=== PATIENT | male | born 1955 | race Caucasian/White ===

== ENCOUNTER 2016-02-11 10:19 | Inpatient (IN) | payer OTHER ==
[~2016-02-11] VITALS: Ht 188 cm; Wt 115.4 kg
[~2016-02-11 10:19] MED LIST: AMLODIPINE BESY10 MG PO; ANUCORT-HC25 MG PR; BENADRYL ALLERG25 MG PO; CELEBREX200 MG PO; DIAZEPAM10 MG PO; FLUVOXAMINE MA100 MG PO; FOCALIN10 MG PO; HYDROCHLOROTHIA25 MG PO; INDERAL10 MG PO; LAMOTRIGINE100 MG PO; LISINOPRIL20 MG PO; METAMUCIL PLUS1 EACH PO; MIRTAZAPINE15 MG PO; OMEPRAZOLE20 MG PO; ONE-A-DAY ESSE1 EAC1 PO; PAXIL20 MG PO; WELLBUTRIN XL150 MG PO
[2016-02-11] MEDS ORDERED: LEVOFLOXACIN750 MG PO (10:49)
[2016-02-11] MEDS ORDERED: AZITHROMYCIN250 MG PO (10:49)
[2016-02-11] MEDS ORDERED: PREDNISONE10 MG PO (10:49)
[2016-02-11] MEDS ORDERED: REMERON45 MG PO (10:52)
[2016-02-11] MEDS ORDERED: BRINTELLIX20 MG PO (10:53)
[2016-02-11] MEDS ORDERED: DEXMETHYLPHENID10 MG PO (10:54)
[2016-02-11 11:13] LABS: HEMATOCRIT 43.3 % (38.0-50.0); MCH 33.1 PG (29.0-34.0); MCHC 35.8 G/DL (30.0-36.0); MCV 92.5 FL (86-99); MEAN PLAT.VOLUME 10.3 uM^3 (9.0-12.4); PLATELET COUNT 233 K/uL (156-360); RBC DIS.WIDTH-SD 45.3 % (39-53); RED BLOOD COUNT 4.68 M/uL (4.00-5.50); WHITE BLOOD COUNT 11.5 K/uL (4.1-10.2)
[2016-02-11 11:16] LABS: BASE EXCESS 3.3 mEq/L (-3 to +3); BICARBONATE 25.1 mEq/L (22-26); CARBOXY HGB 1.8 % (0-5); METHEMOGLOBIN 1.2 % (0-1.5); PCO2 30 mm Hg (35-45); PO2 69 mm Hg (80-100); pH 7.53 (7.35-7.45)
[2016-02-11 11:22] LABS: CHLORIDE 108 mEq/L (99-109); POTASSIUM 4.6 mEq/L (3.7-5.4); SODIUM 140 mEq/L (136-147)
[2016-02-11 11:24] LABS: GLUCOSE 129 mg/dL (70-99)
[2016-02-11 11:25] LABS: ANION GAP 11 MEQ/L (2-14)
[2016-02-11 11:26] LABS: TOTAL BILIRUBIN 0.6 mg/dL (0.0-1.0)
[2016-02-11 11:27] LABS: ALKALINE PHOSPHATASE 86 IU/L (3-129)
[2016-02-11 11:28] LABS: COMMENTS - BLOOD GASES A+C+; DEVICE NC; O2 FLOW 2 L/MIN; SITE RR
[2016-02-11 11:28] LABS: GFR ESTIMATE (CALCULATED) > 59 mL/min/
[2016-02-11 11:29] LABS: UREA NITROGEN (BUN) 27 mg/dL (9-23)
[2016-02-11 11:34] LABS: TROP-I INTERPRETATION NEGATIVE; TROPONIN-I 0.11 ng/mL (0.0-0.30)
[2016-02-11 11:36] LABS: D-DIMER ELISA 2.04 mg/L FEU (< 0.57)
[2016-02-11 12:23] LABS: EOSINOPHIL (%) 0 % (0-5); IMMATURE GRANULOCYTE (%) 3.2 % (0.0-0.7); IMMATURE GRANULOCYTE COUNT 3.7 K/uL; LYMPHOCYTE COUNT 1.3 K/uL (1.0-2.8); MONOCYTE (%) 9.4 % (3-12); MONOCYTE COUNT 1.1 K/uL (0-0.8); NEUTROPHIL COUNT 8.7 K/uL (1.8-6.4)
[2016-02-11 12:24] LABS: HEMATOLOGY COMMENT 1 SMEAR COMPATIBLE; PLAT.SUFFICIENCY ADEQUATE; USER ID SDF
[2016-02-11 13:10] LABS: INTER. NORMALIZED RATIO 1.1; PROTHROMBIN TIME 10.9 (9.2-11.2); PTT 26.6 (25-32)
[2016-02-11] MEDS ORDERED: BRINTELLIX10 MG PO (13:46)
[2016-02-11 14:30] VITALS: BP 167/92; BP 167/93
[2016-02-11 19:15] VITALS: BP 127/79
[2016-02-12 03:59] VITALS: BP 132/84
[2016-02-12 06:05] LABS: HEMATOCRIT 43.5 % (38.0-50.0); MCH 33.6 PG (29.0-34.0); MCHC 34.9 G/DL (30.0-36.0); MEAN PLAT.VOLUME 10.8 uM^3 (9.0-12.4); PLATELET COUNT 197 K/uL (156-360); RBC DIS.WIDTH-CV 14.3 % (11.8-14.6); RBC DIS.WIDTH-SD 49.2 % (39-53); RED BLOOD COUNT 4.53 M/uL (4.00-5.50); WHITE BLOOD COUNT 11.4 K/uL (4.1-10.2)
[2016-02-12 06:47] LABS: ALKALINE PHOSPHATASE 65 IU/L (3-129); ANION GAP 11 MEQ/L (2-14); CHLORIDE 103 MEQ/L (99-109); GFR ESTIMATE (CALCULATED) > 59 mL/min/; GLUCOSE 98 mg/dL (70-99); POTASSIUM 3.9 MEQ/L (3.7-5.4); SAMPLE HEMOLYSIS CHECK 0; SAMPLE ICTERIC CHECK 0; SAMPLE LIPEMIA CHECK 0; SODIUM 140 MEQ/L (136-147); TOTAL BILIRUBIN 0.7 MG/DL (0.0-1.0); UREA NITROGEN (BUN) 35 mg/dL (9-23)
[2016-02-12 07:37] VITALS: BP 127/75
[2016-02-12 12:00] VITALS: BP 135/67
[2016-02-12 16:00] VITALS: BP 115/75
[2016-02-12 19:32] VITALS: BP 148/93
[2016-02-13] VITALS (7 sets, daily range): BP systolic 105–135; BP diastolic 52–92
[2016-02-13 07:31] LABS: ANION GAP 11 MEQ/L (2-14); CHLORIDE 102 MEQ/L (99-109); GFR ESTIMATE (CALCULATED) > 59 mL/min/; GLUCOSE 109 mg/dL (70-99); SAMPLE HEMOLYSIS CHECK 0; SAMPLE ICTERIC CHECK 0; SAMPLE LIPEMIA CHECK 0; SODIUM 139 MEQ/L (136-147); UREA NITROGEN (BUN) 32 mg/dL (9-23)
[2016-02-13 16:45] LABS: TROP-I INTERPRETATION NEGATIVE; TROPONIN-I 0.01 ng/mL (0.0-0.30)
[2016-02-13 22:17] LABS: TROP-I INTERPRETATION NEGATIVE; TROPONIN-I 0.01 ng/mL (0.0-0.30)
[2016-02-14 03:09] VITALS: BP 103/59
[2016-02-14 04:53] LABS: INTER. NORMALIZED RATIO 1.1; PROTHROMBIN TIME 10.7 (9.2-11.2)
[2016-02-14 05:04] LABS: TROP-I INTERPRETATION NEGATIVE; TROPONIN-I 0.01 ng/mL (0.0-0.30)
[2016-02-14 08:30] VITALS: BP 124/78
[2016-02-14 09:55] VITALS: BP 115/79
[2016-02-14 12:07] LABS: HPCA INDEX 0.16
[2016-02-14 12:08] LABS: ANTI-HEPATITIS A VIRUS (IGM) Nonreactive; HAV INDEX 0.18
[2016-02-14 12:09] LABS: HIV INDEX 0.07; HIV-1/2 AB/AG COMBO Nonreactive
[2016-02-14 12:09] LABS: ANTI-HEPATITIS B CORE (IGM) Nonreactive; HBC IgM INDEX 0.18
[2016-02-14 15:40] VITALS: BP 131/75
[2016-02-14 19:25] VITALS: BP 128/78
[2016-02-14 23:30] VITALS: BP 103/63
[2016-02-15 03:35] VITALS: BP 111/72
[2016-02-15 06:50] VITALS: BP 113/77
[2016-02-15 07:01] LABS: HEMATOCRIT 40.9 % (38.0-50.0); MCH 32.8 PG (29.0-34.0); MCHC 34.5 G/DL (30.0-36.0); MCV 95.1 FL (86-99); MEAN PLAT.VOLUME 10.9 uM^3 (9.0-12.4); PLATELET COUNT 179 K/uL (156-360); RBC DIS.WIDTH-CV 13.8 % (11.8-14.6); RBC DIS.WIDTH-SD 47.3 % (39-53); WHITE BLOOD COUNT 9.5 K/uL (4.1-10.2)
[2016-02-15 07:21] LABS: EOSINOPHIL (%) 1.5 % (0-5); EOSINOPHIL COUNT 0.1 K/uL (0-0.3); IMMATURE GRANULOCYTE (%) 2.8 % (0.0-0.7); IMMATURE GRANULOCYTE COUNT 0.3 K/uL; LYMPHOCYTE COUNT 2.3 K/uL (1.0-2.8); MONOCYTE (%) 8.5 % (3-12); MONOCYTE COUNT 0.8 K/uL (0-0.8); NEUTROPHIL (%) 62.8 % (45-76); NEUTROPHIL COUNT 5.9 K/uL (1.8-6.4)
[2016-02-15 07:26] LABS: INTER. NORMALIZED RATIO 1.1; PROTHROMBIN TIME 10.7 (9.2-11.2)
[2016-02-15 07:35] LABS: ALKALINE PHOSPHATASE 76 IU/L (3-129); ANION GAP 9 MEQ/L (2-14); CHLORIDE 101 MEQ/L (99-109); GFR ESTIMATE (CALCULATED) > 59 mL/min/; GLUCOSE 92 mg/dL (70-99); POTASSIUM 3.9 MEQ/L (3.7-5.4); SAMPLE HEMOLYSIS CHECK 0; SAMPLE ICTERIC CHECK 0; SAMPLE LIPEMIA CHECK 0; SODIUM 136 MEQ/L (136-147); TOTAL BILIRUBIN 0.8 MG/DL (0.0-1.0); UREA NITROGEN (BUN) 26 mg/dL (9-23)
[2016-02-15 08:21] LABS: HEMATOLOGY COMMENT 1 SMEAR COMPATIBLE; USER ID CL
[2016-02-15] MEDS ORDERED: XARELTO15 MG PO (14:50)
[2016-02-15 16:40] VITALS: BP 139/84
[2016-02-16 05:30] LABS: DRVVT Mixing Study Interp Not Indicated (()); dRVVT Screen 36 sec (<=45)
[2016-02-16 06:01] LABS: ADD PTT REFLEX? Y; PTT-LA 42 sec (<=40)
[2016-02-16 20:46] LABS: PROTEIN C FUNCTIONAL ACTIVITY+ >200 % (70-180)
[2016-02-17 12:54] LABS: ANTITHROMBIN III ACTIVITY+ 133 % activi (80-120)
[2016-02-22 14:44] LABS: Protein S, Free 170 % normal (57-171)
== END 2016-02-15 16:56 | disposition home or self-care (01) | DRG 176 ==
LOC: EME 10:19 → 2EAST 13:17 → EDOF 13:17 → 4EAST 14:29 → 2EAST 02-14 09:47
PROVIDERS: Emergency Medicine; Hospitalist; Internal Medicine; Physician Assistant Medical
DX: I26.99 Other pulmonary embolism without acute cor pulmonale (principal); I82.513 Chronic embolism and thrombosis of femoral vein, bilateral; D68.59 Other primary thrombophilia; F33.9 Major depressive disorder, recurrent, unspecified; E87.3 Alkalosis; J98.11 Atelectasis; Z66 Do not resuscitate; F10.20 Alcohol dependence, uncomplicated; I10 Essential (primary) hypertension; F41.9 Anxiety disorder, unspecified; R00.0 Tachycardia, unspecified; I48.2 Chronic atrial fibrillation; E66.9 Obesity, unspecified; R91.1 Solitary pulmonary nodule; K76.0 Fatty (change of) liver, not elsewhere classified; G47.33 Obstructive sleep apnea (adult) (pediatric); K70.9 Alcoholic liver disease, unspecified; J30.2 Other seasonal allergic rhinitis; M12.9 Arthropathy, unspecified; Z60.2 Problems related to living alone; K21.9 Gastro-esophageal reflux disease without esophagitis; Z68.32 Body mass index [BMI] 32.0-32.9, adult; Z87.891 Personal history of nicotine dependence; Z99.89 Dependence on other enabling machines and devices; Z95.0 Presence of cardiac pacemaker; Z82.3 Family history of stroke
CPT/HCPCS: 36600; 71275; 80048; 80053; 80074; 81241 90; 82803; 83880; 84484; 85025; 85027; 85300 90; 85303 90; 85305 90; 85306 90; 85379; 85597 90; 85610; 85613 90; 85730; 85730 90; 86703; 93005; 93306; 93970; 94010; 94640; 94799; 99281; 99285; J1650

== ENCOUNTER 2016-02-24 09:28 | Emergency (ER) | payer OTHER ==
[~2016-02-24] VITALS: Ht 182.9 cm; Wt 118.8 kg
[~2016-02-24 09:28] MED LIST changes: +AZITHROMYCIN250 MG PO; +BRINTELLIX10 MG PO; +BRINTELLIX20 MG PO; +DEXMETHYLPHENID10 MG PO; +LEVOFLOXACIN750 MG PO; +PREDNISONE10 MG PO; +REMERON45 MG PO; +XARELTO15 MG PO
[2016-02-24 11:06] LABS: EOSINOPHIL (%) 0.7 % (0-5); EOSINOPHIL COUNT 0.1 K/uL (0-0.3); HEMATOCRIT 38.7 % (38.0-50.0); IMMATURE GRANULOCYTE (%) 0.6 % (0.0-0.7); IMMATURE GRANULOCYTE COUNT 0.4 K/uL; LYMPHOCYTE COUNT 1.9 K/uL (1.0-2.8); MCH 33.2 PG (29.0-34.0); MCHC 36.7 G/DL (30.0-36.0); MEAN PLAT.VOLUME 9.9 uM^3 (9.0-12.4); MONOCYTE (%) 6.1 % (3-12); MONOCYTE COUNT 0.4 K/uL (0-0.8); NEUTROPHIL (%) 64.9 % (45-76); NEUTROPHIL COUNT 4.6 K/uL (1.8-6.4); RBC DIS.WIDTH-CV 12.5 % (11.8-14.6); RBC DIS.WIDTH-SD 40.5 % (39-53); RED BLOOD COUNT 4.28 M/uL (4.00-5.50)
[2016-02-24 11:07] LABS: MCV 90.4 FL (86-99); PLATELET COUNT 276 K/uL (156-360)
[2016-02-24 11:15] LABS: CHLORIDE 105 mEq/L (99-109); POTASSIUM 3.9 mEq/L (3.7-5.4); SODIUM 137 mEq/L (136-147)
[2016-02-24 11:16] LABS: CARBON DIOXIDE (BICARBONATE) 22.8 MEQ/L (20-31)
[2016-02-24 11:17] LABS: GLUCOSE 108 mg/dL (70-99)
[2016-02-24 11:18] LABS: ANION GAP 14 MEQ/L (2-14)
[2016-02-24 11:19] LABS: TOTAL BILIRUBIN 0.7 mg/dL (0.0-1.0)
[2016-02-24 11:20] LABS: ALKALINE PHOSPHATASE 95 IU/L (3-129)
[2016-02-24 11:21] LABS: GFR ESTIMATE (CALCULATED) > 59 mL/min/
[2016-02-24 11:22] LABS: UREA NITROGEN (BUN) 26 mg/dL (9-23)
[2016-02-24 11:26] LABS: TROP-I INTERPRETATION NEGATIVE; TROPONIN-I < 0.01 ng/mL (0.0-0.30)
[2016-02-24 11:55] LABS: INTER. NORMALIZED RATIO 1.3; PROTHROMBIN TIME 13.4 (9.2-11.2)
[2016-02-24 12:49] LABS: BASE EXCESS 1.1 mEq/L (-3 to +3); BICARBONATE 25.1 mEq/L (22-26); COMMENTS - BLOOD GASES A+C+; DEVICE NC; METHEMOGLOBIN 1.1 % (0-1.5); O2 FLOW 2 L/MIN; PCO2 37 mm Hg (35-45); PO2 73 mm Hg (80-100); SITE LR; pH 7.44 (7.35-7.45)
[2016-02-24 13:45] VITALS: BP 123/85
== END 2016-02-24 13:46 | disposition home or self-care (01) ==
LOC: EME 09:28
PROVIDERS: Physician Assistant
DX: F41.0 Panic disorder [episodic paroxysmal anxiety] (principal); E87.3 Alkalosis; Z86.711 Personal history of pulmonary embolism; Z86.718 Personal history of other venous thrombosis and embolism; Z79.01 Long term (current) use of anticoagulants; Z87.891 Personal history of nicotine dependence
CPT/HCPCS: 36600; 71020; 71275; 80053; 81003; 82803; 83880; 84484; 85025; 85610; 93005; 99281; 99285